=== PATIENT | female | born 1945 | race Caucasian/White ===

== ENCOUNTER 2018-11-08 19:48 | Emergency (ER) | payer MEDICARE ==
[~2018-11-08] VITALS: Ht 167.6 cm; Wt 78.0 kg
--- NOTE | 2018-11-08 20:24 | ED Cardiac General ---
History of Present Illness General Stated Complaint: DECREASED PULSE History of Present Illness Date Seen by Provider: Nov 08, 2018 Time Seen by Provider: 20:08 Activities at Onset: none The patient is a very pleasant 73-year-old female who presents for evaluation of 2 very brief episodes of bradycardia. She has a history of end-stage renal disease and is on home peritoneal dialysis. She tells me that she checks her blood pressure and heart rate approximately 3 times a day. While she was checking it today she noted that it read her heart rate is 38. Her daughter is present and states that she checked her pulse and that it was 40 at that time. During this episode the patient did not have any additional symptoms and specifically denies dizziness, nausea, lightheadedness, chest pain, shortness of breath, or syncope. She is completely asymptomatic at this time. Her daughter mentions that she may have accidentally given the patient an extra dose of one of her blood pressure medicines this morning but is unsure. The patient is alert and oriented 4, calm, and appears to be in no distress this time. She has had no chest discomfort. Allergies and Home Medications Allergies Coded Allergies: butorphanol (Verified Allergy, Unknown, 11/08/18) iodine (Verified Allergy, Unknown, 11/08/18) levofloxacin (Verified Allergy, Unknown, 11/08/18) meperidine (Verified Allergy, Unknown, 11/08/18) morphine (Verified Allergy, Unknown, 11/08/18) Patient Home Medication List Home Medication List Reviewed: Yes Review of Systems Review of Systems Constitutional: no symptoms reported EENTM: No Symptoms Reported Respiratory: No Symptoms Reported Cardiovascular: Irregular Heart Rate Gastrointestinal: No Symptoms Reported Musculoskeletal: no symptoms reported Skin: no symptoms reported Psychiatric/Neurological: No Symptoms Reported Endocrine: No Symptoms Reported Hematologic/Lymphatic: No Symptoms Reported All Other Systems Reviewed Negative Unless Noted: Yes Past Sxggvuh-Cicbfj-Ywqxrb Hx Patient Social History Recent Foreign Travel: No Contact w/Someone Who Travel: No Physical Exam Vital Signs Vital Signs - First Documented 11/08/18 20:16 Temp 98.4 Pulse 82 Resp 18 B/P (MAP) 177/89 (118) Pulse Ox 98 O2 Delivery Room Air Capillary Refill : Height, Weight, BMI Height: '" Weight: lbs. oz. kg; BMI Method: General Appearance: No Apparent Distress, WD/WN HEENT: PERRL/EOMI, TMs Normal, Normal ENT Inspection Neck: Full Range of Motion, Normal Inspection, Non Tender Respiratory: Chest Non Tender, Lungs Clear, Normal Breath Sounds, No Accessory Muscle Use, No Respiratory Distress Cardiovascular: Regular Rate, Rhythm, No Gallop, No JVD, No Murmur, Normal Peripheral Pulses Gastrointestinal: Normal Bowel Sounds, No Pulsatile Mass, Non Tender, Soft, Other (peritoneal dialysis catheter in place) Extremity: Normal Capillary Refill, Normal Inspection, Normal Range of Motion, Non Tender Neurologic/Psychiatric: Alert, Oriented x3, No Motor/Sensory Deficits, Normal Mood/Affect, chief analytics officer II-XII Norm as Tested Skin: Normal Color, Warm/Dry Progress/Results/Core Measures Results/Orders My Orders Orders - NORA HAIDER DO Ekg Tracing (11/08/18 20:08) Vital Signs/I&O 11/08/18 20:16 Temp 98.4 Pulse 82 Resp 18 B/P (MAP) 177/89 (118) Pulse Ox 98 O2 Delivery Room Air Initial ECG Impression Date: Nov 08, 2018 Initial ECG Impression Time: 20:23 Initial ECG Rhythm: Normal Sinus Initial ECG Intervals: Normal Initial ECG Impression: Normal Comment No acute ischemic findings noted, no STEMI, reviewed and interpreted by myself Departure Impression Primary Impression: Feared condition not demonstrated Disposition: 01 HOME, SELF-CARE Condition: Stable Departure-Patient Inst. Decision time for Depature: 20:58 Referrals: ERIN RENTERIA MD (PCP/Family) Primary Care Physician Patient Instructions: Bradycardia (DC) Add. Discharge Instructions: Patient family advised of the EKG findings. The patient has been asymptomatic since arrival and does not want to have any additional testing performed which is completely reasonable. Advised that the patient skipped her carvedilol tonight as this could be contributing to her bradycardia. Advised that she discuss with her primary care physician how to proceed from here. However I did tell the patient to check her blood pressure and heart rate before taking her blood pressure medications in the morning. The patient expresses verbal understanding and agree with the plan. She is stable for discharge at this time. NORA HAIDER DO Nov 08, 2018 20:24
--- NOTE | 2018-11-08 20:50 | NUR ---
Report was given to GILBERT Morse at this time. Care was transferred.
[2018-11-08 21:08] VITALS: BP 177/89
== END 2018-11-08 21:08 | disposition home or self-care (01) ==
LOC: EDUNIT# 19:48 → ER FS 19:51
DX: F40.9 Phobic anxiety disorder, unspecified (principal); R00.1 Bradycardia, unspecified; N18.6 End stage renal disease; Z99.2 Dependence on renal dialysis; Z91.041 Radiographic dye allergy status; Z88.5 Allergy status to narcotic agent; Z88.8 Allergy status to other drugs, medicaments and biological substances
CPT/HCPCS: 93005

== ENCOUNTER → 2020-06-15 | Outpatient (CLI) | payer MEDICARE ==
--- NOTE | 2020-06-15 17:42 | Diagnostic Imaging Report ---
HISTORY: Abdominal pain, constipation. TECHNIQUE: Frontal views of the abdomen. COMPARISON: None. FINDINGS: Overall, there is marked paucity of bowel gas throughout the abdomen. A large amount of stool is not seen. Tubing overlies the left abdomen on one image which appears removed on a repeated image. There is a surgical drain in the pelvis. There is calcific atherosclerosis of the splenic artery. There is a sclerotic focus in the left ilium, which most likely represents a bone island. IMPRESSION: 1. No significant bowel gas or distention is seen. Dictated by: Dictated on workstation # [id number]
== END ==
LOC: RAD FS 16:27
PROVIDERS: ATTEND Nurse Practitioner Family
DX: K59.00 Constipation, unspecified (principal)
CPT/HCPCS: 74019

== ENCOUNTER → 2020-07-29 | Outpatient (CLI) | payer MEDICARE ==
--- NOTE | 2020-07-29 15:22 | Diagnostic Imaging Report ---
PROCEDURE: CT abdomen without contrast. TECHNIQUE: Multiple contiguous axial images were obtained through the abdomen without the use of intravenous contrast. Auto Exposure Controls were utilized during the CT exam to meet ALARA standards for radiation dose reduction. INDICATION: Upper abdominal pain. Patient has prior history of pancreatitis. No prior studies are available for comparison. There are several noncalcified nodular densities identified in the right middle lobe and right lower lobe. Right lower lobe nodule measures 11 mm. A conglomerate of nodules in the medial aspect of the right middle lobe measure 3.2 x 1.3 cm. Remainder of the lung bases are clear. Liver does show circumscribed low attenuation lesions in the left lobe as well as a small lesion in the right lobe. These are too small to characterize but likely represent cysts. Gallbladder is unremarkable. There is no biliary ductal dilatation identified. The pancreatic body and tail are unremarkable. There are calcifications in the pancreatic head. Large cyst in the pancreatic head is noted measuring 3.1 x 2.7 cm. Spleen is unremarkable. No adrenal mass identified. Both kidneys demonstrate marked atrophy and cortical thinning. There are nonobstructing calculi within both kidneys. There appears to be some gas within the left renal collecting system as well as the proximal left ureter. No significant perinephric inflammatory changes are seen. Aorta is non-aneurysmal. There is no free fluid identified. IMPRESSION: 1. Abnormal appearance of the pancreatic head which does contain a large cystic lesion and some calcifications. There is soft tissue prominence to the pancreatic head. Dedicated CT abdomen with and without IV contrast utilizing pancreatic protocol would be recommended for further evaluation. 2. Multiple nodules identified in the right middle lobe and right lower lobe. Metastatic nodules cannot be entirely excluded. 3. Marked bilateral renal atrophy and cortical thinning. There does appear to be gas within portions of the left renal collecting system and proximal left ureter. This can be seen with emphysematous pyelitis and correlation with urinary tract symptoms and laboratory studies is recommended. There is also bilateral nonobstructing nephrolithiasis. Dictated by: Dictated on workstation # [id number]
== END ==
LOC: RAD FS 14:38
PROVIDERS: ATTEND Family Medicine
DX: N20.0 Calculus of kidney (principal); R91.8 Other nonspecific abnormal finding of lung field; K86.2 Cyst of pancreas
CPT/HCPCS: 74150

== ENCOUNTER → 2020-12-17 | Outpatient (CLI) | payer MEDICARE ==
[2020-12-17 11:27] LABS: BASOPHILS % (AUTO) 0 % (0-10); EOSINOPHILS % (AUTO) 0 % (0-10); HEMATOCRIT 24 % (35-52); HEMOGLOBIN 7.5 G/DL (11.5-16.0); LYMPHOCYTES % (AUTO) 8 % (12-44); MEAN CORPUSCULAR HEMOGLOBIN 31 PG (25-34); MEAN CORPUSCULAR HGB CONC 32 G/DL (32-36); MEAN CORPUSCULAR VOLUME 97 FL (80-99); MEAN PLATELET VOLUME 10.6 FL (7.4-10.4); MONOCYTES % (AUTO) 6 % (0-12); NEUTROPHILS % (AUTO) 82 % (42-75); PLATELET COUNT 267 10^3/uL (130-400); WHITE BLOOD COUNT 11.1 10^3/uL (4.3-11.0)
[2020-12-17 11:28] LABS: LYMPHOCYTES # (AUTO) 0.8 X 10^3 (1.0-4.0); MONOCYTES # (AUTO) 0.6 X 10^3 (0.0-1.0); NEUTROPHILS # (AUTO) 9.1 X 10^3 (1.8-7.8)
[2020-12-17 12:17] LABS: ATYPICAL LYMPHOCYTES 1 %; BAND NEUTROPHILS 6 %; BASOPHILS % (MANUAL) 0 %; EOSINOPHILS % (MANUAL) 0 %; LYMPHOCYTES % (MANUAL) 9 %; METAMYELOCYTES % 1 %; MONOCYTES % (MANUAL) 2 %; MYELOCYTES % 3 %; NEUTROPHILS % (MANUAL) 77 %
[2020-12-17 12:21] LABS: BILIRUBIN,TOTAL 0.2 MG/DL (0.1-1.0); CALCIUM 9.1 MG/DL (8.5-10.1); CREATININE SERUM 8.83 MG/DL (0.60-1.30); POTASSIUM 3.9 MMOL/L (3.6-5.0); TOTAL PROTEIN 4.8 GM/DL (6.4-8.2)
[2020-12-17 12:22] LABS: ALBUMIN 2.4 GM/DL (3.2-4.5)
== END ==
LOC: IHC 10:58
PROVIDERS: ATTEND Family Medicine
DX: I12.0 Hypertensive chronic kidney disease with stage 5 chronic kidney disease or end stage renal disease (principal); E11.22 Type 2 diabetes mellitus with diabetic chronic kidney disease; E11.51 Type 2 diabetes mellitus with diabetic peripheral angiopathy without gangrene; N30.00 Acute cystitis without hematuria; N18.6 End stage renal disease; D63.1 Anemia in chronic kidney disease; E46 Unspecified protein-calorie malnutrition; E78.5 Hyperlipidemia, unspecified; E21.1 Secondary hyperparathyroidism, not elsewhere classified
CPT/HCPCS: 80053; 80061; 83036; 85007; 85027

== ENCOUNTER → 2020-12-21 | Outpatient (CLI) | payer MEDICARE ==
[2020-12-21 13:18] LABS: CLARITY,URINE TURBID; COLOR,URINE BROWN; PROTEIN,URINE 2+ (NEGATIVE)
[2020-12-21 13:19] LABS: BACTERIA,URINE LARGE /HPF; BILIRUBIN,URINE NEGATIVE (NEGATIVE); GLUCOSE, URINE (UA) NEGATIVE (NEGATIVE); KETONES,URINE NEGATIVE (NEGATIVE); LEUKOCYTE ESTERASE ,URINE 2+ (NEGATIVE); NITRITE,URINE NEGATIVE (NEGATIVE); WBC,URINE TNTC /HPF
== END ==
LOC: IHC 10:29
PROVIDERS: ATTEND Family Medicine
DX: N30.00 Acute cystitis without hematuria (principal); N18.6 End stage renal disease
CPT/HCPCS: 81000; 87088